=== PATIENT | male | born 1975 | race African-American/Black ===

== ENCOUNTER 2020-01-09 23:51 | Emergency (ER) | payer BC ==
[~2020-01-09] VITALS: Ht 188 cm; Wt 93.9 kg
[2020-01-10] MEDS ORDERED: PROAIR HFA8.5 GM INH (00:21)
[2020-01-10 01:03] VITALS: BP 164/103
[2020-01-10] MEDS ORDERED: GUAIFEN-CODEINE10 ML PO (01:46)
== END 2020-01-10 02:01 | disposition home or self-care (01) ==
LOC: ER 23:51
DX: U07.1 COVID-19 (principal); R19.7 Diarrhea, unspecified; Z79.899 Other long term (current) drug therapy

== ENCOUNTER 2020-01-23 23:25 | Emergency (ER) | payer BC ==
[~2020-01-23] VITALS: Ht 188 cm; Wt 95.3 kg
[~2020-01-23 23:25] MED LIST: GUAIFEN-CODEINE10 ML PO; PROAIR HFA8.5 GM INH
[2020-01-23 23:26] VITALS: BP 174/113
== END 2020-01-24 00:50 | disposition home or self-care (01) ==
LOC: ER 23:25
DX: U07.1 COVID-19 (principal); R05 Cough; E11.9 Type 2 diabetes mellitus without complications; I10 Essential (primary) hypertension; Z79.899 Other long term (current) drug therapy